=== PATIENT | male | born 1965 | race Caucasian/White ===

== ENCOUNTER → 2017-04-11 | Outpatient (CLI) | payer OTHER ==
[2017-04-11 13:33] LABS: BLOOD UREA NITROGEN 12 mg/dl (7-18); BUN/CREATININE RATIO 13.4 (10-20); CALCIUM 9.5 mg/dl (8.5-10.1); CARBON DIOXIDE 30 mmol/L (21-32); CHLORIDE 103 mmol/L (98-107); CHOLESTEROL 178 mg/dl (0-200); CREATININE 0.88 mg/dl (0.60-1.40); GLUCOSE 89 mg/dl (70-99); POTASSIUM 3.9 mmol/L (3.5-5.1); SODIUM 137 mmol/L (136-145)
[2017-04-11 13:37] LABS: CHOLESTEROL/HDL RATIO 4.8; HDL CHOLESTEROL 37 mg/dl; LDL CHOLESTEROL CALCULATED 104 mg/dl; TRIGLYCERIDES 187 mg/dl (0-150); VERY LOW DENSITY LIPOPROT CALC 37 mg/dl
== END | disposition home or self-care (01) ==
LOC: C.LABMFLN 07:14
PROVIDERS: ATTEND Family Medicine
DX: I10 Essential (primary) hypertension (principal); E78.5 Hyperlipidemia, unspecified; R97.20 Elevated prostate specific antigen [PSA]